=== PATIENT | female | born 1955 | race Caucasian/White ===

== ENCOUNTER 2019-11-16 18:11 | Emergency (ER) | payer OTHER, SELFPAY ==
--- NOTE | ~2019-11-16 | XR_ITS ---
XR wrist RT min 3V DATE: 11/16/2019 18:32 INDICATION: Injury. Swelling, bruising of right wrist TECHNIQUE: 4 views COMPARISON: 08/11/2011 right wrist FINDINGS: There is interval increased severe osteoarthritis at the first carpometacarpal joint since 08/11/2011. No recent fracture or dislocation of the right wrist is detected. There is evidence of a subtle linear fracture of the radial styloid process, with overlying soft tiss ue swelling at the dorsum of the wrist. No other fracture or dislocation is detected. IMPRESSION: Subtle nondisplaced radial styloid process fracture with overlying soft tissue swelling Severe osteoarthritic change at the first carpometacarpal joint Reviewed, dictated and finalized at location A.
[2019-11-16 18:13] VITALS: BP 120/92; PULSE 108; RESP 18; TEMP 36.8; O2SAT 98
--- NOTE | 2019-11-16 18:50 | ED.UPPEXIN ---
HPI - Extremity Injury (Upper) General Chief Complaint: Extremity Injury, Upper Stated Complaint: right wrist injury Time Seen by Provider: 11/16/19 18:18 Source: patient and family Mode of arrival: ambulatory Limitations: no limitations History of Present Illness HPI narrative: Patient is a 64-year-old female who presents to emergency department for evaluation of right wrist injury that occurred just prior to arrival while using a drill bit that torqued her wrist with resultant aching pain of the radial aspect of the wrist where there is swelling and tenderness over the dorsal aspect denies other injuries or complaints Related Data Allergies Allergy/AdvReac Type Severity Reaction Status Date / Time No Known Allergies Allergy Verified 11/16/19 18:16 Review of Systems Review of Systems: All systems reviewed & are unremarkable except as noted in HPI and below PMFSH Social History Social History (Updated 11/16/19 @ 18:51 by Didier Santos PA-C) Smoking status: Current every day smoker Gender identity (if verbalized by the patient): Female Exam Narrative: Exam Narrative: GENERAL: Well-appearing, well-nourished, and in no acute distress. HEAD: Normocephalic, atraumatic. EYES: PERRLA and EOMI. ENT: Nares clear, no rhinorrhea or epistaxis. Mucous membranes moist. EXTREMITIES: Slight swelling with tenderness over the radial aspect of the right wrist joint no other deformities SKIN: Warm, dry, no rash. NEURO: No focal deficits. Alert and oriented x3. Cranial nerves II through XII grossly intact. Neurovascularly intact PSYCH: Normal mood and affect. Course Course Emergency Course: Patient in the room aware of case findings treatment plan and diagnosis Vital Signs Vital signs: Vital Signs Temperature 98.2 F 11/16/19 18:13 Pulse Rate 108 H 11/16/19 18:13 Respiratory Rate 18 11/16/19 18:13 Blood Pressure 120/92 H 11/16/19 18:13 Pulse Oximetry 98 11/16/19 18:13 Temperature 98.2 F 11/16/19 18:13 Pulse Rate 108 H 11/16/19 18:13 Respiratory Rate 18 11/16/19 18:13 Blood Pressure 120/92 H 11/16/19 18:13 Pulse Oximetry 98 11/16/19 18:13 Procedures Orthopedic Splinting/Casting Injury #1: Splinting/Casting Date: 11/16/19 Splinting/Casting Time: 18:57 Side: right Upper Extremity Injury Location: wrist Splint: customized in ED OCL: thumb spica Pre-Procedure Neuro Vascular Exam: normal Post-Procedure Neuro Vascular Exam: normal MDM - Extremity Injury (Upper) MDM Narrative Medical decision making narrative: Patients injury or pain is consistent with musculoskeletal etiology. No signs of neurological or vascular compromise on exam. Compartments and tisues are soft without signs of compartment syndrome. Pain is felt appropriate for further evaluation on an outpatient basis. Discharge Plan Discharge Clinical Impression: Closed fracture of right wrist Patient Disposition: Home, Self-Care Condition: Stable Instructions: Antibiotic Form, Wrist Fracture in Adults (ED) Additional Instructions: Follow-up with orthopedic surgery first thing Sunday to set up for reevaluation Wear splint with rest and intermittent icing for symptom relief Return if symptoms worsen or concerns or any increase in redness swelling pain or fever over 100.5 Follow patient education sheets Only take medications as directed Prescriptions: New acetaminophen [Tylenol Arthritis Pain] 650 mg tablet extended release 650 mg PO Q8H PRN (Reason: pain) Qty: 10 RF: 0 Follow-up/Referrals: Tameka Reed MD [Primary Care Provider] - Raul Wall MD [Physician] -
== END 2019-11-16 19:39 | disposition home or self-care (01) ==
PROVIDERS: Emergency Provider Family Medicine; PCP Family Medicine
DX: S52.514A Nondisplaced fracture of right radial styloid process, initial encounter for closed fracture (principal); F17.200 Nicotine dependence, unspecified, uncomplicated; X50.9XXA Other and unspecified overexertion or strenuous movements or postures, initial encounter
CPT/HCPCS: 29125; 73110; 99284; A4565